=== PATIENT | female | born 1950 ===

== ENCOUNTER 2020-06-14 04:07 | Outpatient (CLI) | payer OTHER ==
[~2020-06-14 04:07] MED LIST: BACTRIM DS TABL1 TAB PO; RECTICARE30 GM TP; SYNTHROID88 MCG PO; ULTRACET PO
== END 2020-06-14 04:12 | disposition home or self-care (01) ==
LOC: PPH VACUNA 04:07
PROVIDERS: ATTEND Emergency Medicine Pediatric Emergency Medicine
DX: Z23 Encounter for immunization (principal)

== ENCOUNTER 2020-07-05 08:59 | Outpatient (CLI) | payer OTHER | END 2020-07-05 09:01 | disposition home or self-care (01) | LOC: PPH VACUNA 08:59 | DX: Z23 Encounter for immunization (principal) ==